=== PATIENT | female | born 1980 | race Two or more races ===

== ENCOUNTER 2016-12-03 10:23 | Emergency (ER) | payer MEDICAID, OTHER ==
[~2016-12-03] VITALS: Ht 170.2 cm; Wt 143.3 kg
[2016-12-03 10:30] VITALS: BP 138/90
== END 2016-12-03 18:03 | disposition left against medical advice (07) ==
LOC: ER 10:23
DX: M79.89 Other specified soft tissue disorders (principal); Z53.21 Procedure and treatment not carried out due to patient leaving prior to being seen by health care provider